=== PATIENT | male | born 1990 | race Caucasian/White ===

== ENCOUNTER 2021-02-02 10:26 | Emergency (ER) | payer SELFPAY ==
[~2021-02-02] VITALS: Ht 175.3 cm; Wt 115.0 kg
[2021-02-02 10:35] VITALS: BP 131/87
--- NOTE | 2021-02-02 11:19 | ED.ADGEN ---
Past Medical History Past Medical History: No Pertinent History Past Surgical History: No Surgical History Smoking Status: Heavy Tobacco Smoker Alcohol Use: Occasionally Drug Use: Marijuana (Usually) General Adult EDM: Chief Complaint: SHORTNESS OF BREATH HPI: HPI: Patient is a 30 year old male who presents to the emergency department with complaints of shortness of breath and pain with coughing in the right side of his chest. Patient states that he has been having problems with shortness of breath for the last 5 months. He states that he has a history of heavy tobacco use he smoked greater than a pack a day for several years. Patient states he started smoking at the age of 14. He tried nicotine gum but it made his gums bleed so for the last 3 weeks he has been vaping nicotine. He denies any chest pain, palpitations, dizziness, syncope, nausea, vomiting, diarrhea, abdominal pain, sore throat, nasal congestion, headache, ear pain, fever, weakness, chills, or rash. Patient states that he woke up today and his shortness of breath was worse and he was wheezing. Patient currently rates his pain a 5 out of 10 on the pain scale, the pain increases with coughing. He denies any medical or surgical history. Patient states he does smoke marijuana on occasion but illicit drug use. Review of Systems: Review of Systems: Complete ROS is negative unless otherwise noted in HPI. Current Medications: Current Medications Medications (Trade) Dose Ordered Sig/Ellen Start Time Stop Time Status Last Admin Dose Admin Albuterol Sulfate (Ventolin Neb Soln) 2.5 mg 1X ONCE 02/02/21 11:30 02/02/21 11:31 DC 02/02/21 11:35 2.5 MG Albuterol/ Ipratropium (Duoneb) 3 ml 1X ONCE 02/02/21 11:30 02/02/21 11:31 DC 02/02/21 11:35 3 ML Prednisone (Prednisone) 50 mg 1X ONCE 02/02/21 11:30 02/02/21 11:31 DC Allergies: Allergies: Allergies Coded Allergies Type Severity Reaction Last Updated Verified No Known Drug Allergies 02/02/21 No Physical Exam: PE: See Above Constitutional: Well developed, well nourished, mild distress, non-toxic appearance. [] HENT: Normocephalic, atraumatic, bilateral external ears normal, nose normal. [] Eyes: PERRLA, EOMI, conjunctiva normal, no discharge. [] Neck: Normal range of motion, no stridor. [] Cardiovascular:Heart rate regular rhythm Lungs & Thorax: Respirations even and slightly labored with mild tachypnea, no retractions, mild respiratory distress, inspiratory and expiratory wheezes throughout, diminished in bilateral lower lobes posteriorly Abdomen: soft, no tenderness Skin: Warm, dry, no erythema, no rash. [] Extremities: No cyanosis, ROM intact, no edema. [] Neurologic: Alert and oriented X 3, normal motor, normal sensory, no focal deficits noted. [] Psychologic: Affect normal, judgement normal, mood normal. [] Current Patient Data: Vital Signs: Vital Signs Date Time Temp Pulse Resp B/P (MAP) Pulse Ox O2 Delivery O2 Flow Rate FiO2 02/02/21 11:43 96 Room Air 02/02/21 10:35 98.7 75 12 131/87 98.7 EKG: EKG: [] Heart Score: C/O Chest Pain: No Radiology/Procedures: Radiology/Procedures: PROCEDURE: CHEST AP ONLY XR CHEST 1V History: Reason: COUGH / Spl. Instructions: / History: Comparison: None. Findings: No consolidation or pleural effusion. Normal heart size. No pneumothorax. Impression: 1. No acute cardiopulmonary process. Electronically signed by: Migel Orona DO (02/02/2021 11:33 AM) [id number] [] Course & Med Decision Making: Course & Med Decision Making Pertinent Labs and Imaging studies reviewed. (See chart for details) Patient is a 30-year-old male who presents emergency department for evaluation of a cough that has been persistent for the last 5 months. Chest x-ray is unremarkable. Patient had inspiratory and expiratory wheezes present on exam. Vital signs are stable. Patient reported feeling better after an albuterol and DuoNeb treatment in the ER. He was given 50 mg of prednisone p.o. Prescriptions written for albuterol and prednisone. I encouraged the patient to stop vaping and stop smoking in its entirety. Encouraged him to follow-up with her primary care doctor next week, he was given a list of clinics in the area. Recommend Tylenol or ibuprofen as needed for fever/pain. Avoid airway irritants. Patient verbalized an understanding of home care, medications, follow-up, and return to ED instructions and was in agreement with the plan of care. [] Barak Disclaimer: Barak Disclaimer: This electronic medical record was generated, in whole or in part, using a voice recognition dictation system. Departure Departure Impression: Primary Impression: Acute wheezy bronchitis Disposition: 01 HOME / SELF CARE / HOMELESS Condition: STABLE Patient Instructions: Bronchitis, [id number] Additional Instructions: Fill prescription(s) and use as directed. Alternate Tylenol or ibuprofen as needed for pain/fever. Increase clear fluids. Avoid airway triggers such as smoke, fragrance, dust, and pollen. May take [id number] cough suppressants as needed. Follow-up with your primary care doctor in 1-2 days, return to the ER if symptoms worsen or fever develops. [facility] [address] [place] [address] [facility] [address] [place] [address] [facility] [address] [place] [address] [facility] [address] [place] [address] [facility] [address] [place] [address] [facility] [address] [place] [address] [facility] [address] [place] [address] [facility] [address] [place] [address] [facility] [address] [place] [address] [facility] [address] [place] [address] Scripts Prednisone (PREDNISONE) 50 Mg Tablet 1 TAB PO DAILY for 5 Days, #5 TAB 0 Refills Prov: NARENDRA GARCIA [employer] 02/02/21 Albuterol Sulfate (VENTOLIN HFA INHALER) 18 Gm Hfa.aer.ad 2 PUFF INH Q4HRS PRN for WHEEZING for 30 Days, #1 INHALER 0 Refills Prov: NARENDRA GARCIA APRN 02/02/21 NARENDRA GARCIA APRN Feb 02, 2021 11:19
[2021-02-02] MEDS ORDERED: IPRATRPIUM/ALBUTEROL 0.5/2.5MG 3 ML NEBU. NEB ONE (11:30)
[2021-02-02] MEDS ORDERED: ALBUTEROL SULFATE 2.5 MG/3 ML NEBU. NEB ONE (11:30)
[2021-02-02] MEDS ORDERED: predniSONE 10 MG TABLET PO ONE (11:30)
--- NOTE | 2021-02-02 11:35 | RAD ---
XR CHEST 1V History: Reason: COUGH / Spl. Instructions: / History: Comparison: None. Findings: No consolidation or pleural effusion. Normal heart size. No pneumothorax. Impression: 1. No acute cardiopulmonary process. Electronically signed by: Migel Orona DO (02/02/2021 11:33 AM) [id number]
[2021-02-02] MEDS ORDERED: VENTOLIN HFA18 GM INH (12:04)
[2021-02-02] MEDS ORDERED: PRED50TA PO (12:04)
== END 2021-02-02 12:10 | disposition home or self-care (01) ==
LOC: ER 10:26
DX: J40 Bronchitis, not specified as acute or chronic (principal); Z87.891 Personal history of nicotine dependence
CPT/HCPCS: 71045; 94640; 99284; J7512; J7613

== ENCOUNTER 2021-04-21 05:35 | Emergency (ER) | payer SELFPAY ==
[~2021-04-21] VITALS: Ht 175.3 cm; Wt 113.1 kg
[~2021-04-21 05:35] MED LIST: PRED50TA PO; VENTOLIN HFA18 GM INH
[2021-04-21] MEDS ORDERED: IPRATRPIUM/ALBUTEROL 0.5/2.5MG 3 ML NEBU. NEB ONE (07:15)
[2021-04-21] MEDS ORDERED: methylPREDNISolone SOD SUCC PF 125 MG/2 ML VIAL. IM ONE (07:15)
[2021-04-21] MEDS ORDERED: PRED20TA PO (07:17)
[2021-04-21] MEDS ORDERED: ALBU2.5V8 IH (07:17)
--- NOTE | 2021-04-21 07:17 | PHYS DOC ---
Past Medical History Past Medical History: No Pertinent History, Asthma Past Surgical History: No Surgical History Smoking Status: Heavy Tobacco Smoker Alcohol Use: Occasionally Drug Use: Marijuana General Adult EDM: Chief Complaint: ASTHMA HPI: HPI: Patient is a 30 year old male who presented to ER due to trouble breathing. Patient said he had a history of asthma, he left his albuterol inhaler at work. He woke up this morning having trouble breathing and wheezing so he came here for evaluation. Patient denies any cough or fever. Patient denies any chest pain. Patient is not vaccinated for COVID-19. Review of Systems: Review of Systems: Constitutional: Denies fever or chills. [] Eyes: Denies change in visual acuity. [] HENT: Denies nasal congestion or sore throat. [] Respiratory: Denies cough, positive for trouble breathing Cardiovascular: Denies chest pain or edema. [] GI: Denies abdominal pain, nausea, vomiting, bloody stools or diarrhea. [] : Denies dysuria. [] Musculoskeletal: Denies back pain or joint pain. [] Integument: Denies rash. [] Neurologic: Denies headache, focal weakness or sensory changes. [] Endocrine: Denies polyuria or polydipsia. [] Lymphatic: Denies swollen glands. [] Psychiatric: Denies depression or anxiety. [] Heart Score: C/O Chest Pain: N/A Risk Factors: Risk Factors: DM, Current or recent (<one month) smoker, HTN, HLP, family history of CAD, obesity. Risk Scores: Score 0 - 3: 2.5% MACE over next 6 weeks - Discharge Home Score 4 - 6: 20.3% MACE over next 6 weeks - Admit for Clinical Observation Score 7 - 10: 72.7% MACE over next 6 weeks - Early Invasive Strategies Current Medications: Current Medications Medications (Trade) Dose Ordered Sig/Ellen Start Time Stop Time Status Last Admin Dose Admin Albuterol/ Ipratropium (Duoneb) 3 ml 1X ONCE 04/21/21 07:15 04/21/21 07:16 Methylprednisolone Sodium Succinate (SOLU-Medrol 125MG VIAL) 125 mg 1X ONCE 04/21/21 07:15 04/21/21 07:16 Allergies: Allergies: Allergies Coded Allergies Type Severity Reaction Last Updated Verified citalopram Allergy Intermediate hives 04/21/21 Yes Physical Exam: PE: Constitutional: Well developed, well nourished, no acute distress, non-toxic appearance. [] HENT: Normocephalic, atraumatic, bilateral external ears normal, oropharynx moist, no oral exudates, nose normal. [] Eyes: PERRLA, EOMI, conjunctiva normal, no discharge. [] Neck: Normal range of motion, no tenderness, supple, no stridor. [] Cardiovascular:Heart rate regular rhythm, no murmur [] Lungs & Thorax: Bilateral breath diminished, diffuse wheezing to auscultation, no respiratory distress Abdomen: Bowel sounds normal, soft, no tenderness, no masses, no pulsatile masses. [] Skin: Warm, dry, no erythema, no rash. [] Back: No tenderness, no CVA tenderness. [] Extremities: No tenderness, no cyanosis, no clubbing, ROM intact, no edema. [] Neurologic: Alert and oriented X 3, normal motor function, normal sensory function, no focal deficits noted. [] Psychologic: Affect normal, judgement normal, mood normal. [] EKG: EKG: [] Radiology/Procedures: Radiology/Procedures: [] Course & Med Decision Making: Course & Med Decision Making Pertinent Labs and Imaging studies reviewed. (See chart for details) Patient is a 30-year-old male who present to ER due to trouble breathing. Patient has history of asthma, he was given DuoNeb treatment and steroid injection in ER, he felt much better. Patient will be discharged home with a prescription for steroids and albuterol inhaler. Barak Disclaimer: Barak Disclaimer: This electronic medical record was generated, in whole or in part, using a voice recognition dictation system. Departure Departure Impression: Primary Impression: Asthma exacerbation attacks Disposition: HOME / SELF CARE / HOMELESS Condition: IMPROVED Referrals: NO PCP (PCP) Please follow up with [facility] this week. [address] [facility], [address] [place] [address] Phone number: [phone] Patient Instructions: Asthma Attacks, Prevention, Asthma, Acute Bronchospasm Additional Instructions: Thank you for visiting our Emergency Department. We appreciate you trusting us with your care. If any additional problems come up don't hesitate to return to visit us. Please follow up with your primary care provider so they can plan additional care if needed and know about the problem that you had. If symptoms worsen come back to the Emergency Department. Any concerning symptoms that start such as chest pain, shortness of air, weakness or numbness on one side of the body, running high fevers or any other concerning symptoms return to the ER. Scripts Albuterol Sulfate (PROAIR HFA INHALER) 8.5 Gm Hfa.aer.ad 2 PUFF IH PRN Q4-6HRS PRN for wheezing for 21 Days, #1 INHALER 0 Refills Prov: VICKIE GILBERT DO 04/21/21 Prednisone (PREDNISONE) 20 Mg Tablet 40 MG PO DAILY for 7 Days, #14 TAB Prov: VICKIE GILBERT DO 04/21/21 VICKIE GILBERT DO Apr 21, 2021 07:17
[2021-04-21 08:25] VITALS: BP 149/81
== END 2021-04-21 08:25 | disposition home or self-care (01) ==
LOC: ER 05:35
DX: J45.901 Unspecified asthma with (acute) exacerbation (principal); Z72.0 Tobacco use; Z88.8 Allergy status to other drugs, medicaments and biological substances
CPT/HCPCS: 94640; 94760; 96372; 99283; J2930